=== PATIENT | female | born 1990 | race African-American/Black ===

== ENCOUNTER 2025-02-25 09:44 | Emergency (ER) | payer MEDICAID ==
[~2025-02-25] VITALS: Ht 157.5 cm; Wt 63.0 kg
[2025-02-25 09:46] VITALS: O2SAT 100
[2025-02-25 10:31] LABS: CLARITY URINE CLEAR (CLEAR); COLOR URINE YELLOW (YELLOW); GLUCOSE URINE NEGATIVE (NEGATIVE); KETONES URINE NEGATIVE (NEGATIVE); LEUKOCYTE ESTERASE URINE TRACE (NEGATIVE); NITRITE URINE NEGATIVE (NEGATIVE); OCCULT BLOOD URINE NEGATIVE (NEGATIVE); PH URINE 7.0 (4.5-8.0); PROTEIN URINE NEGATIVE (NEGATIVE); SPECIFIC GRAVITY URINE 1.006 (1.005-1.030); UROBILINOGEN URINE 0.2 E.U./dL (0.2-1.0)
[2025-02-25 10:36] LABS: BASOPHILS % 0.1 % (0.0-2.0); EOSINOPHILS % 0.5 % (0.0-5.0); HEMATOCRIT. 31.4 % (36.0-48.0); HEMOGLOBIN. 10.6 g/dL (12.0-16.0); LYMPHOCYTES % 14.8 % (20.0-50.0); MEAN PLATELET VOLUME 7.7 fl (7.4-10.4); MONOCYTES % 8.3 % (2.0-8.0); NEUTROPHILS % 76.3 % (40.0-76.0); PLATELET 244 x1000/uL (130-400); RED BLOOD CELL COUNT 3.33 mill/uL (4.2-5.4); RED CELL DISTRIBUTION WIDTH 13.4 % (11.6-14.6)
[2025-02-25 10:45] LABS: BACTERIA URINE TRACE; RBC URINE 0-2 /hpf (0-2); SQUAMOUS EPITHELIAL CELL URINE 2+ /lpf (RARE/1+); YEAST URINE NONE SEEN
[2025-02-25 10:47] LABS: CREATININE 0.5 mg/dL (0.6-1.0); UREA NITROGEN BLOOD 7 mg/dL (9-23)
[2025-02-25] MEDS ORDERED: CEPH500C2 MT (11:53)
[2025-02-25] MEDS ORDERED: PREN1TAB26 MT (11:53)
[2025-02-25] MEDS ORDERED: TOPUD MT (11:53)
[2025-02-25 12:00] VITALS: BP 105/65; PULSE 78; RESP 18; TEMP 36.9; O2SAT 99
== END 2025-02-25 12:04 | disposition home or self-care (01) ==
LOC: ER 09:44
DX: O9A.213 Injury, poisoning and certain other consequences of external causes complicating pregnancy, third trimester (principal); S02.2XXA Fracture of nasal bones, initial encounter for closed fracture; Z90.49 Acquired absence of other specified parts of digestive tract; R82.71 Bacteriuria; Z3A.36 36 weeks gestation of pregnancy
CPT/HCPCS: 36415; 70160; 76815; 80048; 81003; 81025; 85025; 86850; 86900; 99285